=== PATIENT | female | born 1990 | race Two or more races ===

== ENCOUNTER 2016-12-12 20:05 | Emergency (ER) | payer MEDICAID ==
[2016-12-12 20:21] VITALS: BP 132/93; PULSE 108; RESP 16; TEMP 99.1; O2SAT 96
[2016-12-12] MEDS ORDERED: PENICILLIN VK 500 MG TAB PO ONE (20:36)
--- NOTE | 2016-12-12 20:38 | UCPHY ---
H & P Time Seen by Provider: 12/12/16 20:32 Patient Type: Established HPI/ROS: This patient has sore throat of moderate intensity of 2 days duration after exposure to her 2-year-old child diagnosed strep this week. She has associated coryza with no other associated symptoms except subjective fevers. She does have mild odynophagia. ROS: No high fevers or chills. Neuro: No confusion GI: No vomiting integumentary: No skin rash 5 point ROS is otherwise negative. Smoking Status: Never smoked Physical Exam: Physical Exam Vital signs are normal. General: No acute distress HEENT: Nose: Clear discharge bilaterally. No sinus tenderness to percussion. Ears: External canals and tympanic membranes are clear with no erythema or abnormal findings bilaterally. Oropharynx: Mild erythema. No exudates. No dysphonia. No drooling or stridor. Neck: Supple Eyes: Pupils equal and react to light. Extraocular motions are intact. Lungs: Clear to auscultation bilaterally with no rales, rhonchi or wheeze. No respiratory distress. Cardiac: Regular rate and rhythm with no murmur gallop or rub Skin: No rash or pallor. Neuro: Alert with no focal deficits noted. Constitutional: Initial Vital Signs Temperature (C) 37.3 C 12/12/16 20:19 Heart Rate 108 H 12/12/16 20:19 Respiratory Rate 16 12/12/16 20:19 Blood Pressure 132/93 H 12/12/16 20:19 O2 Sat (%) 96 12/12/16 20:19 O2 Delivery Mode Room Air Allergies/Adverse Reactions: No Known Allergies Allergy (Unverified 05/03/16 18:26) Home Medications: Medication Instructions Recorded No Home Meds 05/03/16 Penicillin V Potassium [Pen Vk 500 mg PO BID #20 tab 12/12/16 500mg (*)] Medical Decision Making - Data Points Laboratory Results: 12/12/16 12/12/16 Unknown 20:17 Group A Strep Screen NEGATIVE (NEGATIVE) Group A Strep DNA Pending Medications Given: Discontinued Medications Penicillin V Potassium (Pen Vk) 500 mg PO EDNOW ONE PRN Reason: Protocol Stop: 12/12/16 20:37 Last Admin: 12/12/16 20:49 Dose: 500 mg Departure - Departure Disposition: Home, Routine, Self-Care Clinical Impression: Exposure to strep throat Condition: Good Instructions: Pharyngitis (ED) Additional Instructions: Diagnosis: Pharyngitis Plan: Penicillin antibiotic Ibuprofen and Tylenol for discomfort as needed Soft diet until he feel improved Return for any significant worsening despite the treatment plan. Referrals: Unknown,Unknown [Unknown] - As per Instructions Prescriptions: Penicillin V Potassium [Pen Vk 500mg (*)] 500 mg PO BID #20 tab - PQRS PQRS Measurement: NA
== END 2016-12-12 20:50 | disposition home or self-care (01) ==
LOC: CED 20:05
DX: J02.9 Acute pharyngitis, unspecified (principal)
CPT/HCPCS: 87880-PO; 99214-PO; G0463-PO

== ENCOUNTER → 2018-03-08 | Outpatient (CLI) | payer MEDICAID | LOC: FIMAGING 09:40 | PROVIDERS: ATTEND Family Medicine | DX: O99.89 Other specified diseases and conditions complicating pregnancy, childbirth and the puerperium (principal); Z68.32 Body mass index [BMI] 32.0-32.9, adult; Z3A.21 21 weeks gestation of pregnancy ==

== ENCOUNTER 2018-10-31 14:15 | Emergency (ER) | payer MEDICAID ==
--- NOTE | 2018-10-31 14:40 | EDPHY ---
H & P Stated Complaint: Abd pain/hernia Time Seen by Provider: 10/31/18 14:39 HPI/ROS: CHIEF COMPLAINT: Central abdominal pain HISTORY OF PRESENT ILLNESS: The patient presents the emergency department with central abdominal pain. The patient has a history of a known periumbilical hernia following her year ago. She reports she is having pain in the area of her hernia today. She denies any vomiting, diarrhea, fever, constipation or dysuria. Her pain is moderate in nature and worsened with palpation. The patient denies prior history of abdominal surgery. The patient takes no regular medications. REVIEW OF SYSTEMS: A comprehensive 10 point review of systems is otherwise negative aside from elements mentioned in the history of present illness. Source: Patient - Personal History LMP (Females 10-55): Over 28 Days Ago Current Tetanus/Diphtheria Vaccine: Yes - Medical/Surgical History Hx Asthma: No Hx Chronic Respiratory Disease: No Hx Diabetes: No Hx Cardiac Disease: No Hx Renal Disease: No Hx Cirrhosis: No Hx Alcoholism: No Hx HIV/AIDS: No Hx Splenectomy or Spleen Trauma: No Other PMH: denies - Social History Smoking Status: Light smoker - Physical Exam Exam: General Appearance: Alert, no distress Eyes: Pupils equal and round no pallor or injection ENT, Mouth: Mucous membranes moist Respiratory: There are no retractions, lungs are clear to auscultation Cardiovascular: Regular rate and rhythm Gastrointestinal: Tenderness to palpation noted in the mid abdominal area, palpable hernia, tender contents noted in area of hernia Neurological: 5/5 strength noted all 4 extremities Skin: Warm and dry, no rashes Musculoskeletal: Neck is supple nontender Extremities: symmetrical, full range of motion Constitutional: Initial Vital Signs Temperature (C) 36.6 C 10/31/18 14:17 Heart Rate 96 10/31/18 14:17 Respiratory Rate 16 10/31/18 14:17 Blood Pressure 126/93 H 10/31/18 14:17 O2 Sat (%) 97 10/31/18 14:17 O2 Delivery Mode Room Air Allergies/Adverse Reactions: No Known Allergies Allergy (Unverified 10/31/18 14:20) Home Medications: Medication Instructions Recorded No Home Meds 05/03/16 Penicillin V Potassium [Pen Vk 500 mg PO BID #20 tab 12/12/16 500mg (*)] Medical Decision Making ED Course/Re-evaluation: Patient presents to the ED with abdominal pain in the area of a known ventral hernia. The patient is somewhat obese. Her abdominal examination made it difficult to distinguish between the presence of omental fat verses bowel in her hernia. A CT scan of the abdomen pelvis was ordered which demonstrates a fat containing abdominal hernia without evidence of any visceral involvement. Patient did receive pain medications in the emergency department. I did re-evaluate the patient at 5:00 p.m. and she is currently feeling better. The patient's laboratory studies, urinalysis and metabolic panel are within normal limits. Patient will be discharged home with the instruction to return to the emergency department for acutely worsening pain. Otherwise the patient will follow up with our on-call general surgeon for evaluation of her periumbilical hernia. Differential Diagnosis: Differential diagnosis considered includes incarcerated hernia, strangulated hernia, pancreatitis, cholecystitis - Data Points Laboratory Results: Laboratory Results 10/31/18 15:06 10/31/18 15:06 10/31/18 10/31/18 10/31/18 15:06 15:06 15:06 WBC 7.33 10^3/uL 10^3/uL (3.80-9.50) RBC 4.35 10^6/uL 10^6/uL (4.18-5.33) Hgb 13.8 g/dL g/dL (12.6-16.3) Hct 40.4 % % (38.0-47.0) MCV 92.9 fL fL (81.5-99.8) MCH 31.7 pg pg (27.9-34.1) MCHC 34.2 g/dL g/dL (32.4-36.7) RDW 12.4 % % (11.5-15.2) Plt Count 280 10^3/uL 10^3/uL (150-400) MPV 9.7 fL fL (8.7-11.7) Neut % (Auto) 54.2 % % (39.3-74.2) Lymph % (Auto) 36.0 % % (15.0-45.0) Daniels % (Auto) 7.4 % % (4.5-13.0) Eos % (Auto) 1.4 % % (0.6-7.6) Baso % (Auto) 0.7 % % (0.3-1.7) Nucleat RBC Rel Count 0.0 % % (0.0-0.2) Absolute Neuts (auto) 3.98 10^3/uL 10^3/uL (1.70-6.50) Absolute Lymphs (auto) 2.64 10^3/uL 10^3/uL (1.00-3.00) Absolute Monos (auto) 0.54 10^3/uL 10^3/uL (0.30-0.80) Absolute Eos (auto) 0.10 10^3/uL 10^3/uL (0.03-0.40) Absolute Basos (auto) 0.05 10^3/uL 10^3/uL (0.02-0.10) Absolute Nucleated RBC 0.00 10^3/uL 10^3/uL (0-0.01) Immature Gran % 0.3 % % (0.0-1.1) Immature Gran # 0.02 10^3/uL 10^3/uL (0.00-0.10) Sodium 137 mEq/L mEq/L (135-145) Potassium 3.7 mEq/L mEq/L (3.5-5.2) Chloride 105 mEq/L mEq/L (97-110) Carbon Dioxide 25 mEq/l mEq/l (22-31) Anion Gap 7 mEq/L mEq/L (6-14) BUN 15 mg/dL mg/dL (7-23) Creatinine 0.6 mg/dL mg/dL (0.6-1.0) Estimated GFR > 60 Glucose 89 mg/dL mg/dL (70-100) Calcium 9.3 mg/dL mg/dL (8.5-10.4) Total Bilirubin 0.3 mg/dL mg/dL (0.1-1.4) Conjugated Bilirubin 0.3 mg/dL mg/dL (0.0-0.5) Unconjugated Bilirubin 0.0 mg/dL mg/dL (0.0-1.1) AST 24 IU/L IU/L (14-46) ALT 41 IU/L IU/L (9-52) Alkaline Phosphatase 92 IU/L IU/L (38-126) Total Protein 7.1 g/dL g/dL (6.3-8.2) Albumin 4.2 g/dL g/dL (3.5-5.0) Lipase 85 IU/L IU/L (23-300) Beta HCG, Qual NEGATIVE Urine Color Urine Appearance Urine pH Ur Specific [place] Urine Protein Urine Ketones Urine Blood Urine Nitrate Urine Bilirubin Urine Urobilinogen Ur Leukocyte Esterase Urine RBC Urine WBC Ur Epithelial Cells Urine Mucus Urine Glucose 10/31/18 14:55 WBC RBC Hgb Hct MCV MCH MCHC RDW Plt Count MPV Neut % (Auto) Lymph % (Auto) Daniels % (Auto) Eos % (Auto) Baso % (Auto) Nucleat RBC Rel Count Absolute Neuts (auto) Absolute Lymphs (auto) Absolute Monos (auto) Absolute Eos (auto) Absolute Basos (auto) Absolute Nucleated RBC Immature Gran % Immature Gran # Sodium Potassium Chloride Carbon Dioxide Anion Gap BUN Creatinine Estimated GFR Glucose Calcium Total Bilirubin Conjugated Bilirubin Unconjugated Bilirubin AST ALT Alkaline Phosphatase Total Protein Albumin Lipase Beta HCG, Qual Urine Color YELLOW Urine Appearance HAZY Urine pH 6.0 (5.0-7.5) Ur Specific [place] [address] 1.024 (1.002-1.030) Urine Protein NEGATIVE (NEGATIVE) Urine Ketones NEGATIVE (NEGATIVE) Urine Blood NEGATIVE (NEGATIVE) Urine Nitrate NEGATIVE (NEGATIVE) Urine Bilirubin NEGATIVE (NEGATIVE) Urine Urobilinogen NEGATIVE EU EU (0.2-1.0) Ur Leukocyte Esterase TRACE H (NEGATIVE) Urine RBC 1-3 /hpf /hpf (0-3) Urine WBC 1-3 /hpf /hpf (0-3) Ur Epithelial Cells 2+ /lpf H /lpf (NONE-1+) Urine Mucus TRACE /lpf /lpf (NONE-1+) Urine Glucose NEGATIVE (NEGATIVE) Medications Given: Discontinued Medications Sodium Chloride (Ns) 1,000 mls @ 0 mls/hr IV EDNOW ONE; Wide Open PRN Reason: Protocol Stop: 10/31/18 14:59 Last Admin: 10/31/18 15:09 Dose: 1,000 mls Point of Care Test Results: Urine Collection Date 10/31/18 Collection Time 14:50 HCG Results Negative Departure - Departure Disposition: Home, Routine, Self-Care Clinical Impression: Ventral hernia Condition: Good Instructions: Ventral Hernia (ED) Additional Instructions: 1. Tylenol and ibuprofen as needed for pain. 2. Return to the ED for markedly worsening symptoms or other concerns. 3. Please schedule a follow-up appointment with the general surgeon you have been referred to for further evaluation of your hernia. Referrals: Júnior Luke MD [Medical Doctor] - As per Instructions
[2018-10-31] MEDS ORDERED: NS 1,000 ML IV ONE (14:58)
[2018-10-31 15:17] LABS: PLATELET COUNT 280 10^3/uL (150-400)
[2018-10-31] MEDS ORDERED: IOHEXOL 350mgI/ML (OMNIPAQUE) 150 ML BTL IV ONE (15:50)
[2018-10-31 17:00] VITALS: BP 99/53
== END 2018-10-31 16:59 | disposition home or self-care (01) ==
DX: K43.9 Ventral hernia without obstruction or gangrene (principal); F17.200 Nicotine dependence, unspecified, uncomplicated; Z88.0 Allergy status to penicillin
CPT/HCPCS: Q9967

== ENCOUNTER 2018-12-07 05:47 | Day surgery (SDC) | payer MEDICAID | END 2018-12-07 11:45 | disposition home or self-care (01) | LOC: FSGY 05:47 ==